=== PATIENT | female | born 1940 | race Caucasian/White ===

== ENCOUNTER 2019-05-10 16:12 | Inpatient (IN) | payer MEDICARE, OTHER ==
[~2019-05-10] VITALS: Ht 170.2 cm; Wt 88.3 kg
--- NOTE | ~2019-05-10 | EKG ---
[place] [address] ELECTROCARDIOGRAM REPORT Name: IRINABRIAN Room: [facility]#: [id number] Admission: 05/10/19 Attend Phys: Discharge: Date of : 44 Date of Service: 05/10/19 1631 Report #: [id number] THIS REPORT FOR: cc: DION - Bri family physician/PCP DION - No family physician/PCP Annie Valencia MD ~ THIS REPORT FOR: //name// [facility] ED Test Date: 2019-05-10 Test Time: 16:31:10 Pat Name: BRIAN AREVALO Department: Room: Gender: F Gas Dispenser: DENNIS : 1940 Requested By: Kian Hdz Order Number: [id number] MD: Measurements Intervals [place] Rate: 75 P: 50 NM: 52 QRS: -2 QRSD: 122 T: 63 QT: 379 QTc: 424 Interpretive Statements Sinus rhythm Atrial premature complex Short NM interval Nonspecific intraventricular conduction delay Inferior infarct, old Lateral leads are also involved No previous ECG available for comparison [email or web address] By: [id number] Epiphany Epiphany, [place] /ORLY
[2019-05-10 16:34] VITALS: BP 93/52
[2019-05-10 16:38] LABS: URINE BILIRUBIN NEGATIVE (Negative); URINE BLOOD 1+ (Negative); URINE CLARITY CLEAR; URINE COLOR YELLOW; URINE GLUCOSE-RANDOM NEGATIVE (Negative); URINE KETONES NEGATIVE (Negative); URINE NITRITE-REFLEX NEGATIVE (Negative); URINE PROTEIN NEGATIVE (Negative); URINE SPECIFIC GRAVITY 1.015 (1.005-1.030); URINE UROBILINOGEN 0.2 E.U./dl (0.2-1.0)
[2019-05-10 16:39] LABS: URINE LEUKOCYTES-REFLEX 3+ (Negative)
[2019-05-10 16:42] LABS: ABSOLUTE BASOPHILS 0.1 thou/uL (0.0-0.2); ABSOLUTE EOSINOPHILS 0.2 thou/uL (0.0-0.7); ABSOLUTE LYMPHOCYTES 2.5 thou/uL (0.8-5.3); ABSOLUTE MONOCYTES 1.4 thou/uL (0.0-1.2); ABSOLUTE NEUTROPHILS 12.1 thou/uL (1.6-8.1); BASOPHILS 0.8 %; EOSINOPHILS 1.4 %; HEMOGLOBIN 14.9 gm/dL (12.0-15.0); LYMPHOCYTES 15.3 %; MCH 31.2 pg (26.0-34.0); MCHC 33.9 g/dL (28.0-37.0); MONOCYTES 8.5 %; MPV 8.1 fl. (7.2-11.1); NUCLEATED RBCS 0 /100WBC; PLATELET COUNT* 317 thou/uL (150-400); RBC 4.78 mil/uL (4.20-5.00); RDW-CV 13.2 % (10.5-14.5); WBC 16.3 thou/uL (4.0-11.0)
[2019-05-10] MEDS ORDERED: LANTUS SUBQ (16:44)
[2019-05-10] MEDS ORDERED: ACCUPRIL5 MG PO (16:45)
[2019-05-10] MEDS ORDERED: DEMADEX20 MG PO (16:45)
[2019-05-10] MEDS ORDERED: PRAVACHOL 20 MG20 M1 PO (16:45)
[2019-05-10] MEDS ORDERED: KLOR-CON 10 ER10 MEQ PO (16:45)
[2019-05-10] MEDS ORDERED: CARVEDILOL3.125 MG PO (16:46)
[2019-05-10] MEDS ORDERED: TRICOR145 MG PO (16:46)
[2019-05-10] MEDS ORDERED: LEVO-T25 MCG PO (16:46)
[2019-05-10] MEDS ORDERED: MONTELUKAST SODI4 M1 PO (16:46)
[2019-05-10] MEDS ORDERED: METFORMIN HCL500 M3 PO (16:46)
[2019-05-10] MEDS ORDERED: MILK OF MA400 MG/5 M PO (16:47)
[2019-05-10] MEDS ORDERED: ELIQUIS5 MG PO (16:47)
[2019-05-10] MEDS ORDERED: NORCO 10-325 T1 EACH PO (16:47)
[2019-05-10 16:48] LABS: MUCUS None Seen strn/LPF (None Seen); SQUAMOUS 4-10 Moderate /LPF (0-3); URINE RBC 0-2 Rare /HPF (0-2); URINE WBC-REFLEX >25 Many /HPF (0-5)
[2019-05-10 16:51] LABS: CALCIUM 9.4 mg/dL (8.5-10.1); CREATININE 4.5 mg/dL (0.6-1.3)
[2019-05-10 16:52] LABS: CASTS None Seen /LPF (None Seen); CRYSTALS None Seen /LPF (None Seen)
[2019-05-10 16:54] LABS: APTT 25.1 Seconds (25.0-31.3); INR 1.1; POTASSIUM 6.7 mmol/L (3.5-5.1); PROTIME 11.7 Seconds (9.20-11.50)
[2019-05-10 17:01] LABS: ALBUMIN 3.7 g/dL (3.4-5.0); TOTAL BILIRUBIN 0.5 mg/dL (<0.1-1.0); TOTAL PROTEIN 7.3 g/dL (6.4-8.2)
[2019-05-10 18:30] LABS: MAGNESIUM 2.5 mg/dL (1.8-2.4); PHOSPHORUS* 6.4 mg/dL (2.5-4.9)
[2019-05-10 20:30] VITALS: BP 122/58
[2019-05-10 20:50] VITALS: BP 112/54
[2019-05-10 21:00] VITALS: BP 112/54
[2019-05-10 23:49] VITALS: BP 126/59
[2019-05-11 00:09] LABS: CALCIUM 8.4 mg/dL (8.5-10.1)
[2019-05-11 00:13] LABS: CREATININE 3.3 mg/dL (0.6-1.3); POTASSIUM 5.1 mmol/L (3.5-5.1)
[2019-05-11 04:23] VITALS: BP 120/56
[2019-05-11] MEDS ORDERED: KLOR-CON 1010 MEQ PO (07:58)
[2019-05-11] MEDS ORDERED: TRICOR145 MG PO (08:00)
[2019-05-11 08:02] LABS: HEMATOCRIT 38.1 % (37.0-47.0); MCH 31.1 pg (26.0-34.0); MCHC 33.8 g/dL (28.0-37.0); MCV 91.9 fL (80.0-100.0); RBC 4.15 mil/uL (4.20-5.00); RDW-CV 13.1 % (10.5-14.5)
[2019-05-11 08:09] LABS: HEMOGLOBIN 12.9 gm/dL (12.0-15.0)
[2019-05-11 08:16] VITALS: BP 120/61
--- NOTE | 2019-05-11 08:22 | NUR ---
RECEIVED REPORT AND ASSUMED CARE AT 2039. PT TRANSPORTED FROM ED TO ROOM 220. ASSESSMENT COMPLETED BY NURSING, ADMISSION COMPLETED. PT DPOA PRESENT/ PAPERWORK PLACED IN CHART. MED REC COMPLETED. BED LOCKED IN LOWEST POSITION, CALL LIGHT WITHIN REACH. BED ALARM ON. POSITION CHANGED EVERY TOW HOURS.
[2019-05-11 08:23] LABS: CREATININE 2.6 mg/dL (0.6-1.3); MAGNESIUM 2.1 mg/dL (1.8-2.4); POTASSIUM 4.3 mmol/L (3.5-5.1)
--- NOTE | 2019-05-11 09:44 | NUR ---
ASSUMED CARE OF PT THIS AM AROUND 07- QM CONSULTANT IN PLACE ORDERED, TRACING SR WITH 1ST DEGREE- UPON ASSESSMENT PT NOTED TO BE RESTING IN BED- PT A&O X1-2 WITH NOTED CONFUSION- INCONTINENT OF BOWEL, BELLE IN PLACE D/D CLEAR JT URINE- BED REST IN PLACE WITH Q2 HOUR TURNS INDCIATED- LCTA/DIMINISHED IN BASES- RESP EVEN AND UN-LABORED- VSS, O2 SAT 97% ON 2L VIA NC- ABD SOFT/OBESE/NON-TENDER, BS X4 QUADS- BM REPORTED ON PRIOR SHIFT- CLEAR LIQUIDS TOLERATED THIS AM, DIET ADVANCED FOR LUNCH-BS MONITORED ORDERED- IV NOTED TO RIGHT AC AND LEFT HAND INTACT AND SL; IV NOTED TO RIGHT FA INTACT, IVF INFUSSING PRESCRIBED- BARRIOR CREAM TO BUTTOCKS THIS SHIFT INDICATED-CALL LIGHT AND PERSONAL BELONGINGS WITH IN REACH- BED ALARM IN PLACE AND WORKING FOR PT SAFETY/NEEDS- HOURLY ROOUNDS IN PLACE R/T SAFETY/NEEDS- ALL NEEDS MET AT THIS TIME-WCTM
[2019-05-11 14:00] VITALS: BP 139/73
--- NOTE | 2019-05-11 14:31 | NUR ---
CM ASSESSMENT: MET WITH PT AND SON IN ROOM. PT CONFUSED. SON STATES SHE HAS LIVED IN [facility] AT [facility] FOR APPROX 1 WEEK. PREVIOUSLY SHE HAD BEEN AT [facility] FOR SNU. PT OCASSIONALLY USES A WALKER. [facility]
--- NOTE | 2019-05-11 16:59 | NUR ---
I have reviewed the documentation by ROBERT GEORGES from 05/11/19 to 05/11/19 and I concur with it. SILVINO CESAR
[2019-05-11 19:30] VITALS: BP 107/49
[2019-05-12 00:28] VITALS: BP 127/67
[2019-05-12 05:01] VITALS: BP 112/57
--- NOTE | 2019-05-12 05:24 | NUR ---
PT SLEPT ON AND OFF THIS SHIFT. ASSESSMENT DOCUMENTED. MEDS GIVEN PER E-JUN. IV PATENT, FLUIDS INFUSING. NO REPORTS OF PAIN THIS SHIFT. PT CONFUSED MOST OF SHIFT. PT REPOSITIONED THROUGH NIGHT. FALL PRECAUTIONS IN PLACE. WILL CONTINUE WITH PLAN OF CARE.
[2019-05-12 07:22] LABS: HEMATOCRIT 36.5 % (37.0-47.0); HEMOGLOBIN 12.3 gm/dL (12.0-15.0); MCH 31.4 pg (26.0-34.0); MCHC 33.6 g/dL (28.0-37.0); MCV 93.5 fL (80.0-100.0); MPV 8.6 fl. (7.2-11.1); RBC 3.91 mil/uL (4.20-5.00); RDW-CV 13.4 % (10.5-14.5); WBC 9.8 thou/uL (4.0-11.0)
[2019-05-12 07:33] LABS: ALBUMIN 2.5 g/dL (3.4-5.0); CALCIUM 7.9 mg/dL (8.5-10.1); CREATININE 1.4 mg/dL (0.6-1.3); MAGNESIUM 1.8 mg/dL (1.8-2.4); POTASSIUM 4.1 mmol/L (3.5-5.1); TOTAL BILIRUBIN 0.3 mg/dL (<0.1-1.0); TOTAL PROTEIN 5.3 g/dL (6.4-8.2)
[2019-05-12 07:57] LABS: CALCIUM 7.8 mg/dL (8.5-10.1); POTASSIUM 4.3 mmol/L (3.5-5.1)
[2019-05-12 08:00] VITALS: BP 159/66
[2019-05-12 08:00] LABS: CREATININE 1.5 mg/dL (0.6-1.3)
[2019-05-12 11:43] VITALS: BP 94/49
--- NOTE | 2019-05-12 12:52 | NUR ---
WOUND NURSE: PATIENT SEEN TO ADDRESS POSSIBLE LESIONS ON BUTTOCKS. PATIENT ASSESSED AND NO WOUNDS. HAS DARK PINK SCARS ONLY. NO INTERVENTION FROM WOUND NURSE REQUIRED.
[2019-05-12 16:00] VITALS: BP 114/58
--- NOTE | 2019-05-12 19:06 | NUR ---
kelin resting in bed. aox1 and confused with aggitation. she freq calls out to help her get out of here. Her family reports that this is a normal behavior for her. vss and patient in no apparent signd of distress. hourly rounding completed for kelin safetu
[2019-05-12 19:30] VITALS: BP 125/47
[2019-05-13 00:37] VITALS: BP 126/54
[2019-05-13 04:00] VITALS: BP 123/68
[2019-05-13 04:38] LABS: HEMATOCRIT 34.7 % (37.0-47.0); HEMOGLOBIN 11.9 gm/dL (12.0-15.0); MCH 31.6 pg (26.0-34.0); MCHC 34.3 g/dL (28.0-37.0); MPV 8.3 fl. (7.2-11.1); RBC 3.77 mil/uL (4.20-5.00); RDW-CV 13.2 % (10.5-14.5); WBC 8.1 thou/uL (4.0-11.0)
[2019-05-13 04:56] LABS: CALCIUM 7.9 mg/dL (8.5-10.1); CREATININE 1.3 mg/dL (0.6-1.3); MAGNESIUM 1.7 mg/dL (1.8-2.4); POTASSIUM 4.4 mmol/L (3.5-5.1)
--- NOTE | 2019-05-13 05:25 | NUR ---
PT SLEPT MOST OF SHIFT. ASSESSMENT DOCUMENTED. MEDS GIVEN PER E-JUN. NEW IV STARTED, PT DC'D PREVIOUS IV'S. PT ORIENTED TO SELF ONLY THIS SHIFT. PT REPOSITIONED THROUGH NIGHT. WILL CONTINUE WITH PLAN OF CARE.
[2019-05-13 08:00] VITALS: BP 122/65
[2019-05-13 12:00] VITALS: BP 113/52
[2019-05-13] MEDS ORDERED: RISPERDAL0.5 MG PO (15:31)
[2019-05-13] MEDS ORDERED: AUGMENTIN250 MG/55 PO (15:35)
[2019-05-13 15:44] VITALS: BP 104/47
[2019-05-13 15:49] VITALS: BP 104/47
--- NOTE | 2019-05-13 17:14 | NUR ---
I have reviewed the documentation by ROBERT GEORGES from 05/13/19 to 05/13/19 and I concur with it. SILVINO CESAR
--- NOTE | 2019-05-14 08:36 | CON ---
[address] [address] CONSULTATION Name: BRIAN AREVALO Mir Room: [address] M.R.#: [id number] Admission: 05/10/19 Attend Phys: Aravind Johnson, Discharge: 05/13/19 Date of : 44 Report #: [id number] THIS REPORT FOR: //name// cc: Manuel Leon MD, Srinath MD ~ THIS REPORT FOR: //name// CC: Manuel Johnson DATE OF SERVICE: 05/11/2019 NEPHROLOGY CONSULTATION CONSULTING PHYSICIAN: Aravind Johnson MD REASON FOR NEPHROLOGY CONSULTATION: Hyperkalemia and acute kidney injury. REASON FOR ADMISSION: Acute renal failure. HISTORY OF PRESENT ILLNESS: This is a 79-year-old female who stays in a [facility], has a history of dementia, have abnormal labs and confusion at [facility]pc, hence she was brought to the hospital. She had potassium apparently of 6.8. She had a creatinine of 4.5 and we do not have a baseline creatinine on her. At the fpc, she also gets quinapril, torsemide and potassium supplementation. It looks like Amado catheter was placed over 50 mL of urine overnight and she was given IV fluids with which her potassium and creatinine are improving. She is awake and she is oriented to self and she knows she is in the hospital, but otherwise confused. ALLERGIES: SULFA AND CODEINE. REVIEW OF SYSTEMS: Not able to obtain from the patient because of her mental status. HOME MEDICATIONS: Include insulin glargine, torsemide, quinapril, pravastatin, potassium chloride, montelukast, levothyroxine, fenofibrate, carvedilol, Apixaban, magnesium hydroxide, hydrocodone. PAST MEDICAL AND SURGICAL HISTORY: Includes hyperkalemia, hypertension, dyslipidemia, COPD, diabetes type 2, constipation, CVA versus dementia? SOCIAL HISTORY: She lives in a fpc. No smoking history currently that we know of. No recreational drug use. No alcohol use. FAMILY HISTORY: We are unaware of her family history. PHYSICAL EXAMINATION: VITAL SIGNS: Blood pressure is 120/61, respiratory rate is 18, pulse rate is 82, temperature 36.7 and she is on 2 liters of oxygen via nasal cannula and pulse ox is 90%. GENERAL: She is awake and alert. She is oriented to self and she knows she is in the hospital, otherwise confused. HEAD AND EYES: Atraumatic and normocephalic. Normal conjunctivae. EARS, NOSE, AND THROAT: Normal ears and nose. Mucous membranes are dry. NECK: No JVD. CHEST: Bilaterally clear to auscultation anteriorly. No crackles or wheezing. CARDIOVASCULAR: S1, S2 normal. No murmurs. ABDOMEN: Soft, nondistended, nontender. Bowel sounds are present. EXTREMITIES: Lower extremities, there is no lower extremity edema. NEUROLOGIC: Grossly intact. PSYCHIATRIC: Not able to assess. LABORATORY DATA: White count is 13,000 and hemoglobin 12.9. Sodium 142, creatinine 2.6, BUN 90, CO2 of 18, potassium 4.0. Other labs are reviewed. IMAGING: Chest x-ray was reviewed. ASSESSMENT: 1. Acute kidney injury in the setting of dehydration, urinary tract infection, hypotension, use of quinapril and torsemide. Baseline creatinine is not known. Creatinine was 4.5 on admission, renal ultrasound is pending. UA showed a possible urinary tract infection, but also looks like a contaminated specimen with 0 to 2 rbc's per high-power field, no protein on dipstick. 2. Anion gap metabolic acidosis. 3. Hyperkalemia in the setting of dehydration and potassium supplementation and acute kidney injury. 4. She is currently being treated for urinary tract infection. 5. History of diabetes type 2. 6. History of chronic obstructive pulmonary disease. PLAN: 1. Continue to hold nephrotoxic agents. 2. Continue to hold quinapril, torsemide, potassium. 3. Continue IV fluids, normal saline at 100 mL an hour. 4. Renal ultrasound. 5. Follow labs. 6. Labs are improving so far. Thank you for this consultation. We will continue to follow with you. <ELECTRONICALLY SIGNED> By: Hali Elizondo MD 05/14/19 0836 [id number] Elizondo MD /nt
== END 2019-05-13 16:30 | DRG 871 ==
LOC: M.ERS 16:12 → M.2W 17:14 → M.TBA-ER 17:14 → M.2W 19:59
PROVIDERS: Emergency Medicine Emergency Medical Services; Internal Medicine; ADMIT Family Medicine
DX: A41.9 Sepsis, unspecified organism (principal); G93.41 Metabolic encephalopathy; N39.0 Urinary tract infection, site not specified; N17.9 Acute kidney failure, unspecified; E87.2 Acidosis; E87.5 Hyperkalemia; F03.90 Unspecified dementia, unspecified severity, without behavioral disturbance, psychotic disturbance, mood disturbance, and anxiety; I10 Essential (primary) hypertension; E78.5 Hyperlipidemia, unspecified; J44.9 Chronic obstructive pulmonary disease, unspecified; E11.9 Type 2 diabetes mellitus without complications; E86.0 Dehydration; I95.9 Hypotension, unspecified; Z66 Do not resuscitate; Z79.84 Long term (current) use of oral hypoglycemic drugs; Z79.4 Long term (current) use of insulin; Z79.891 Long term (current) use of opiate analgesic; Z79.899 Other long term (current) drug therapy; Z88.5 Allergy status to narcotic agent; Z88.2 Allergy status to sulfonamides